=== PATIENT | female | born 1970 | race Caucasian/White ===

== ENCOUNTER 2018-10-10 06:05 | Inpatient (IN) ==
--- NOTE | 2018-10-10 07:11 | PROVIDER DOCUMENTATION ---
HPI-Abdominal Pain/GI Problem - General Chief Complaint: N/V/D Stated Complaint: V / D / PASSED OUT Time Seen by Provider: 10/10/18 07:05 Source: patient Allergies/Adverse Reactions: Patient Allergies Allergy/AdvReac Type Severity Reaction Status Date / Time carbamazepine [From Tegretol] Allergy Unknown Unknown Verified 07/24/18 13:18 divalproex sodium Allergy Unknown Unknown Verified 07/24/18 13:18 [From Depakote] Home Medications: Home Medication List Medication Instructions Recorded Confirmed Last Taken Type Calcium Carb, Citrate/Vit D3 2 tab PO BID 06/21/16 10/10/18 11/03/17 History [Calcium + D3 ER Tablet] Calcitriol 0.5 mcg PO DAILY 11/03/17 10/10/18 11/03/17 History Hydrochlorothiazide 12.5 mg PO EVERY OTHER DAY 11/03/17 10/10/18 11/03/17 History Potassium Gluconate [Potassium] 600 mg PO DAILY 11/03/17 10/10/18 11/03/17 H istory Venlafaxine [Effexor] 75 mg PO BID 11/03/17 10/10/18 11/03/17 History Amlodipine [Norvasc] 5 mg PO DAILY 10/10/18 10/10/18 Unknown History Atorvastatin Calcium [Lipitor] 40 mg PO HS 10/10/18 10/10/18 Unknown History Levothyroxine Sodium [Synthroid] 88 microgm PO DAILY 10/10/18 10/10/18 Unknown History Omeprazole [Prilosec] 20 mg PO DAILY@0700 10/10/18 10/10/18 Unknown History Prednisone 7.5 mg PO DAILY 10/10/18 10/10/18 Unknown History - History of Present Illness-ABD Nature of Presenting Problems: 36hrs n v and diarrhea no fever has chill cough no sob had chills episodes of abdominal pain no abx Abdominal Pain Onset Location: reports: [facility] Pain Radiation: reports: no radiation Quality of Pain: reports: cramping, pressure Severity in ED: reports: mild Onset/Duration: reports: 2 days ago Timing: reports: still present, improving. denies: gone now, constant, getting worse Activities at Onset: reports: none Exposure to sick contacts?: No Modifying Factors: improves with: lying down Associated Symptoms: reports: diarrhea, fever/chills, vomiting Last BM: this morning Dark Stools Present?: reports: none noticed Rectal Bleeding: reports: none # of Diarrhea Episodes: 40 Rectal Pain: reports: none # of Vomiting Episodes: 15 Bruising or Bleeding Gums?: No Similar Symptoms Previously?: No Recently seen or treated by another doctor?: No Review of Systems - Adult - REVIEW OF SYSTEMS - ADULT Constitutional: reports: chills. denies: fever Eyes: reports: no symptoms reported Ears, Nose, Mouth & Throat: reports: no symptoms reported Respiratory: denies: chronic cough, cough, hemoptysis, shortness of breath, wheezing Gastrointestinal: reports: abdominal pain, diarrhea, nausea, poor appetite, vomiting Musculoskeletal: reports: frequent leg cramps, muscle aches, muscle weakness Integumentary: reports: no symptoms reported Neurological: reports: no symptoms reported Psychiatric: reports: no symptoms reported Endocrine: reports: no symptoms reported Hematologic/Lymphatic: reports: no symptoms reported Allergic/Immunologic: reports: no symptoms reported Past History - Adult - PAST MEDICAL HISTORY-ADULT Review of Records: reports: Nursing Assessment Review, Medications Reviewed, Social history reviewed & non-contributory. Major Childhood Illnesses: reports: denies history Cardiovascular: reports: hyperlipidemia Respiratory: reports: denies history Gastrointestinal: reports: GERD Obstetrical/Gynecological: reports: denies history Genitourinary: reports: kidney disease Musculoskeletal: reports: denies history Neurological: reports: Seizures/Epilepsy Psychiatric: reports: anxiety, depression Endocrine/Immune: reports: thyroid disorder Other Conditions: reports: denies history - PRIOR SURGERIES/PROCEDURES Surgical/Procedure History: reports: hysterectomy, other (thyroidectomy) - IMMUNIZATION STATUS Childhood Immunizations: See Nurse Assessment Flu Vaccine: See Nurse Assessment - FAMILY HISTORY Family History: reviewed, not pertinent - SOCIAL HISTORY Smoking: denies Substance Use: none/never Alcohol Use Frequency: occasionally Physical Exam-General - PHYSICAL EXAM-ADULT Initial Vital Signs Reviewed: Yes - CONSTITUTIONAL General Appearance: appears well - EYES Eyes: PERRL/EOMI, pink conjunctivae - HEAD, EARS, NOSE, MOUTH & THROAT HENMT: normocephalic/atraumatic, normal ENT inspection, pharynx normal - NECK Neck: supple - RESPIRATORY Respiratory: lungs clear, normal breath sounds - CARDIOVASCULAR Cardiovascular: normal peripheral pulses, regular rate, rhythm - GASTROINTESTINAL (ABDOMEN) Abdominal Exam: normal bowel sounds, non tender, soft, no organomegaly, no pulsatile mass - LYMPHATIC Lymphatic: no adenopathy - MUSCULOSKELETAL Back Exam: normal inspection, no CVA tenderness Extremity: normal range of motion, non-tender - SKIN Integumentary: normal color, normal turgor - NEUROLOGIC Neurologic: grossly normal - PSYCHIATRIC Psych/Mental Status: oriented x 3 Progress - PLAN OF CARE/RESULTS Progress/Plan/Lab Results: Vital Signs - 8 hr 10/10/18 06:14 Temperature 98.0 F Pulse Rate 79 Respiratory Rate 20 Blood Pressure 110/79 O2 Sat by Pulse Oximetry 99 Result Diagrams: 10/10/18 06:30 10/10/18 06:30 Departure - Departure Date of Disposition Decision: 10/10/18 Time of Disposition Decision: 10:31 DIAGNOSIS: Hypokalemia, Hypocalcemia Disposition: ADMITTED INPATIENT 09 Certified Medical Emergency: Emergent Condition: Stable Referrals and Follow-Ups: Kobe Rios CRNP [Primary Care Provider] - - Critical Care Note This patient required my direct & personal management of CC.: No Attestation - Physician/ NICOLLE Attestation Patient care was provided by Advanced Practice Provider:: No The physician spent face to face time with patient:: Yes Advanced Practice Provider documentation review:: Supervising physician onsite and consulted in the evaluation and care of this patient. The physician did have a face to face encounter with the patient.
[2018-10-10] MEDS ORDERED: NS 1,000 ML IV ONE (07:13)
[2018-10-10] MEDS ORDERED: ZOFRAN ODT PO ONE (07:33)
[2018-10-10 08:04] LABS: BASO# 0.03 X1000 (0.0-0.2); BASO% 0.3 % (0.0-0.8); EOS# 0.05 X1000 (0.0-0.7); EOS% 0.4 % (0.0-10.0); HEMATOCRIT 45.6 % (37.0-47.0); HEMOGLOBIN 15.2 g/dL (12.0-16.0); IMM GRAN# 0.04 X1000 (0.0-0.04); IMM GRAN% 0.3 % (0.0-0.5); LYMPH# 1.75 X1000 (1.2-3.4); LYMPH% 14.7 % (20.5-51.1); MCH 29.9 PG (27-31); MCHC 33.3 g/dL (33-37); MCV 89.6 FL (81-99); MONO# 0.68 X1000 (0.11-0.59); MONO% 5.7 % (1.7-9.3); MPV 10.6 FL (7.4-10.4); NEUT# 9.38 X1000 (1.4-6.5); NEUT% 78.6 % (42.2-75.2); PLT 425 X1000 (130-400); RBC 5.09 XMIL (4.2-5.4); RDW 17.5 % (11.5-14.5); WBC 11.93 X1000 (4.8-10.8)
[2018-10-10 08:26] LABS: ALBUMIN 4.2 g/dL (3.5-5.0); CALCIUM 6.9 mg/dL (8.8-10.2); TOTAL BILIRUBIN 0.4 mg/dL (0.20-1.00); TOTAL PROTEIN 8.2 g/dL (6.3-8.3)
[2018-10-10] MEDS ORDERED: KLOR-CON PO ONE (09:10)
[2018-10-10] MEDS ORDERED: TUMS EXTRA STRENGTH PO ONE (09:11)
[2018-10-10] MEDS ORDERED: TUMS PO ONE (09:30)
--- NOTE | 2018-10-10 09:40 | EKG Report ---
Test Performed on : 10/10/2018 08:56:17 AM Test Reason : emboli Blood Pressure : / mmHG Vent. Rate : 086 BPM Atrial Rate : 086 BPM P-R Int : 150 ms QRS Dur : 070 ms QT Int : 384 ms P-R-T Axes : 027 -20 178 degrees QTc Int : 459 ms Normal sinus rhythm. Low voltage QRS Inferior infarct , age undetermined Cannot rule out Anterior infarct (cited on or before 04-NOV-2017) T wave abnormality, consider lateral ischemia Abnormal ECG When compared with ECG of 04-NOV-2017 06:58, Inferior infarct is now present T wave inversion now evident in Anterolateral leads QT has shortened Unconfirmed Result
[2018-10-10] MEDS ORDERED: ZOFRAN IV PRN (11:56)
[2018-10-10] MEDS: NS 1,000 ML IV SCH ×2 (12:34→21:40)
[2018-10-10] MEDS ORDERED: CALCIUM GLUCONATE 2 GM in NS 100 ML IV ONE (13:00)
[2018-10-10 19:26] LABS: AGAP 11; ALBUMIN 3.5 g/dL (3.5-5.0); ALKALINE PHOSPHATASE 70 U/L (32-104); BUN 10 mg/dL (8-22); CALCIUM 6.8 mg/dL (8.8-10.2); CHLORIDE 108 mmol/L (98-107); COSMO 275; CREATININE 0.7 mg/dL (0.5-0.9); ESTIMATED GFR > 60; GLUCOSE 107 mg/dL (70-104); GOT 16 U/L (10-30); GPT 13 U/L (10-36); POTASSIUM 4.1 mmol/L (3.5-5.1); SODIUM 138 mmol/L (136-145); TCO2 19 mmol/L (25-35); TOTAL PROTEIN 6.2 g/dL (6.3-8.3)
[2018-10-10] MEDS ORDERED: CALTRATE 600 PO ONE ×2 (19:30→19:45)
[2018-10-10] MEDS ORDERED: EFFEXOR PO SCH (21:00)
[2018-10-10] MEDS: CALTRATE 600 + D PO SCH (21:38)
[2018-10-10] MEDS: LIPITOR PO SCH (21:38)
--- NOTE | 2018-10-11 02:40 | HISTORY AND PHYSICAL ---
CHIEF COMPLAINT: Nausea, vomiting. HISTORY OF PRESENT ILLNESS: The patient is a 36-year-old female who notes that she has been having nausea, vomiting, cough, chills for the past several days. She has had diarrhea. States this usually happens when she has low calcium. ALLERGIES: Tegretol, Depakote. MEDICATIONS: Calcium carbonate, calcitriol, hydrochlorothiazide, potassium gluconate, Effexor 75 twice a day, Norvasc, Lipitor 40, Synthroid 88, omeprazole and prednisone. PAST MEDICAL HISTORY: Patient has a history of hyperlipidemia, chronic reflux, kidney disease, epilepsy, depression, thyroid disorder. She has had a hysterectomy and thyroidectomy. FAMILY HISTORY: Noncontributory. REVIEW OF SYSTEMS: As noted above. Positive chills but no real fevers. Positive cough and congestion, diarrhea, vomiting. Denies any headaches, blurred vision, change in vision. Denies any focalized numbness, tingling, weakness, although does state she has generalized weakness. SOCIAL HISTORY: She lives at home. Does not smoke or drink. Does not use illicit substances. PHYSICAL EXAMINATION: VITAL SIGNS: Reviewed. Temperature 98 degrees, pulse 79, respiratory 20, BP 110/79. GENERAL: Patient is awake, alert, currently in no respiratory distress. HEENT: Normocephalic. NECK: Supple. CARDIOVASCULAR: Regular rate. No murmurs. CHEST: Clear and nonlabored. ABDOMEN: Soft. EXTREMITIES: Moves all extremities. NEUROLOGIC: No focal changes. LABS: CBC normal. CMP normal with the exception of hyperglycemia at 153, potassium 3.0 and calcium at 6.0. ASSESSMENT: 1. Hypokalemia. 2. Hypocalcemia. 3. Hyperglycemia in a patient with no previous history. 4. Hypothyroidism. 5. Hypertension. 6. Others. PLAN: We will admit patient to the hospital, replace her calcium, restart her home medications and follow. cc: Celio López MD
[2018-10-11] MEDS: SYNTHROID PO SCH (06:17)
[2018-10-11] MEDS: PRILOSEC PO SCH (06:17)
[2018-10-11 06:51] LABS: BASO# 0.02 X1000 (0.0-0.2); BASO% 0.2 % (0.0-0.8); EOS# 0.46 X1000 (0.0-0.7); EOS% 5.1 % (0.0-10.0); HEMATOCRIT 36.9 % (37.0-47.0); HEMOGLOBIN 11.8 g/dL (12.0-16.0); IMM GRAN# 0.02 X1000 (0.0-0.04); IMM GRAN% 0.2 % (0.0-0.5); LYMPH# 2.33 X1000 (1.2-3.4); LYMPH% 25.9 % (20.5-51.1); MCH 29.4 PG (27-31); MONO# 0.71 X1000 (0.11-0.59); MONO% 7.9 % (1.7-9.3); NEUT# 5.45 X1000 (1.4-6.5); NEUT% 60.7 % (42.2-75.2); PLT 286 X1000 (130-400); RBC 4.01 XMIL (4.2-5.4); RDW 17.4 % (11.5-14.5); WBC 8.99 X1000 (4.8-10.8)
[2018-10-11 07:21] LABS: ESTIMATED GFR > 60
[2018-10-11 07:31] LABS: AGAP 11; ALBUMIN 3.2 g/dL (3.5-5.0); ALKALINE PHOSPHATASE 69 U/L (32-104); BUN 8 mg/dL (8-22); CHLORIDE 112 mmol/L (98-107); COSMO 287; CREATININE 0.7 mg/dL (0.5-0.9); GLUCOSE 97 mg/dL (70-104); GOT 16 U/L (10-30); GPT 12 U/L (10-36); POTASSIUM 3.8 mmol/L (3.5-5.1); SODIUM 145 mmol/L (136-145); TCO2 22 mmol/L (25-35); TOTAL PROTEIN 6.2 g/dL (6.3-8.3)
[2018-10-11 07:35] LABS: CALCIUM 6.5 mg/dL (8.8-10.2)
[2018-10-11] MEDS: NS 1,000 ML IV SCH ×2 (07:50→18:23)
[2018-10-11] MEDS ORDERED: EFFEXOR PO SCH (09:00)
[2018-10-11] MEDS: PREDNISONE PO SCH (09:21)
[2018-10-11] MEDS: ROCALTROL PO SCH (09:22)
[2018-10-11] MEDS: CALTRATE 600 + D PO SCH ×2 (09:22→20:51)
[2018-10-11] MEDS: PATIENT'S OWN MED PO SCH (09:25)
[2018-10-11] MEDS ORDERED: CALCIUM GLUCONATE 1 GM in NS 50 ML IV ONE ×2 (09:36→11:00)
[2018-10-11] MEDS: EFFEXOR PO SCH ×2 (10:02→20:51)
[2018-10-11] MEDS: CALTRATE 600 PO SCH ×2 (12:26→16:36)
--- NOTE | 2018-10-11 17:48 | PROGRESS NOTE ---
DATE: 10/11/2018 SUBJECTIVE: Patient notes she is starting to feel a little bit better she is actually wanting to eat breakfast. Denies any fevers or chills. Denies cough, congestion. PHYSICAL: Temperature 98.5, pulse 63, respiratory [*] 78/50 to 89/51.General: Patient is awake, she is in no current distress, she is alert, oriented x3. HEENT: Normocephalic. Neck: Supple. CARDIOVASCULAR: Regular rate. Chest: Clear. Abdomen: Soft, nondistended. Extremities: Moves all extremities. ASSESSMENT: 1. Hypokalemia . 2. Hypocalcemia. 3. Hyperglycemia. 4. Hypothyroidism. 5. Hypertension. PLAN: Will continue patient in the hospital, continue to adjust calcium, follow her labs. Blood pressure is mildly low although she is tolerating this very well. Further orders as needed, hopefully home over the next few days. cc: Celio López MD
[2018-10-11] MEDS: LIPITOR PO SCH (20:51)
[2018-10-12] MEDS: NS 1,000 ML IV SCH (04:27)
[2018-10-12 05:22] VITALS: BP 112/67
[2018-10-12] MEDS: PRILOSEC PO SCH (06:13)
[2018-10-12] MEDS: SYNTHROID PO SCH (06:13)
[2018-10-12] MEDS: CALTRATE 600 + D PO SCH (10:17)
[2018-10-12] MEDS: PREDNISONE PO SCH (10:17)
[2018-10-12] MEDS: CALTRATE 600 PO SCH ×2 (10:17→13:31)
[2018-10-12] MEDS: EFFEXOR PO SCH (10:18)
[2018-10-12] MEDS: ROCALTROL PO SCH (10:18)
[2018-10-12] MEDS: PATIENT'S OWN MED PO SCH (10:19)
--- NOTE | 2018-10-12 15:49 | Extremity Venous Study ---
Venous U/S Bilateral Legs - 10/12/2018 INDICATION: RLE pain, elevated ddimer TECHNIQUE: COMPARISON: None FINDINGS: At the right knee, there is a superficial varicose vein that is completely thrombosed. The deep veins of the lower extremity are fully compressible with normal color and pulse wave Doppler signal. IMPRESSION: Thrombosed varicose vein at the right knee. Electronically signed by Beni Pacheco 10/12/2018 3:46 PM
--- NOTE | 2018-10-12 16:37 | DISCHARGE SUMMARY ---
ADMISSION DATE: 10/10/2018 DISCHARGE DATE: 10/12/2018 DIAGNOSES: 1. Hypokalemia resolved. 2. Hypocalcemia improved. 3. Hyperglycemia resolved. 4. Hypothyroidism with a TSH of 6.20. 5. Hypertension. DIAGNOSTICS: Bilateral lower extremity Doppler revealed no evidence of DVT . HOSPITAL COURSE: Ms. Thao presented to the emergency room complaining of nausea, vomiting, cough and chills. She states that this usually happens when [*] she was found to be hypocalcemic with a calcium of 6.9 for which she was supplemented throughout the hospitalization. Symptoms have resolved. Her TSH was 6.20. We did continue her levothyroxine. We did discuss compliance with medication with the patient. Just prior to discharge she had an area above her TERRY hose right beside her knee cap that was tender to palpation. Lower extremity Doppler bilateral was performed which revealed no evidence of DVT. DISCHARGE VITAL SIGNS: Blood pressure is 112/67, heart rate of 68, respirations 18, temperature 97 degrees oral with room air saturations 100%. DISCHARGE MEDICATIONS: 1. Levothyroxine 88 mcg p.o. daily. 2. Prilosec 20 mg p.o. daily. 3. Calcitriol 0.5 p.o. daily. 4. Caltrate D 2 tablets b.i.d. 5. Hydrochlorothiazide 12.5 p.o. daily. 6. Atorvastatin 40 mg p.o. at bedtime. 7. Effexor 75 mg p.o. b.i.d. 8. Prednisone 7.5 p.o. daily FOLLOWUP: She is to follow up with her primary care provider Kobe Rios in 1 to 2 weeks. She needs to call Saturday to schedule an appointment. She has been instructed to call to be seen sooner or return to the emergency room for any syncope, dizziness, chest pain, palpitations, any shortness of breath, cough, fever, chills, any nausea, vomiting, diarrhea, constipation, hematuria, dysuria, frequency, urgency or for any questions or concerns that she may have. She is being discharged home in stable condition with family members. TIME SPENT: Greater than 30 minutes. Dictated by NORBERTO Wilson for Celio López MD cc: Kobe López MD
--- NOTE | 2018-10-12 18:47 | DISCHARGE SUMMARY ---
ADMISSION DATE: 10/10/2018 DISCHARGE DATE: 10/12/2018 SUMMARY: Patient seen and examined by myself. Full note dictated and discussed with nurse practitioner. Patient presented to the hospital with hypokalemia and hypocalcemia due to her surgically induced hypoparathyroidism. Her potassium and calcium were replaced. Her blood pressures improved. On discharge, she is awake, alert. She is in no distress and overall is feeling better. The patient will be discharged home. She will continue her home medications, and will follow up outpatient as needed. cc: Celio López MD
== END 2018-10-12 16:47 | disposition home or self-care (01) | DRG 645 ==
LOC: P.MEDSURG 06:05 → P.ED 06:05 → OBSVTOIN 10:45
PROVIDERS: ATTEND Family Medicine
CPT/HCPCS: 80053; 83735; 84439; 84443; 85025; 85379; 93005; 93970; 96360; 99285; A9270; J0610; J7030; J7506; J7512

== ENCOUNTER 2019-01-31 13:13 | Inpatient (IN) ==
[2019-01-31 13:48] LABS: HEMATOCRIT 39.4 % (37.0-47.0); MCH 30.2 PG (27-31); MCV 91.4 FL (81-99); RBC 4.31 XMIL (4.2-5.4); RDW 16.4 % (11.5-14.5); WBC 14.21 X1000 (4.8-10.8)
[2019-01-31 13:49] LABS: BASO# 0.12 X1000 (0.0-0.2); BASO% 0.8 % (0.0-0.8); EOS# 0.14 X1000 (0.0-0.7); IMM GRAN# 0.09 X1000 (0.0-0.04); IMM GRAN% 0.6 % (0.0-0.5); LYMPH# 1.69 X1000 (1.2-3.4); LYMPH% 11.9 % (20.5-51.1); MONO# 0.62 X1000 (0.11-0.59); MONO% 4.4 % (1.7-9.3); MPV 10.1 FL (7.4-10.4); NEUT# 11.55 X1000 (1.4-6.5); NEUT% 81.3 % (42.2-75.2); PLT 388 X1000 (130-400)
[2019-01-31 14:08] LABS: ESTIMATED GFR > 60
[2019-01-31 14:30] LABS: UR AMPHETAMINES QUAL NONE DETECTED (NONE DETECT); UR BARBITUATES QUAL NONE DETECTED (NONE DETECT); UR BENZODIAZEPIN QUAL NONE DETECTED (NONE DETECT); UR COCAINE QUAL NONE DETECTED (NONE DETECT); UR METHADONE QUAL NONE DETECTED (NONE DETECT); UR METHAMPHETAMINE QUAL NONE DETECTED (NONE DETECT); UR OPIATES QUAL NONE DETECTED (NONE DETECT); UR OXYCODONE QUAL NONE DETECTED (NONE DETECT); UR PCP QUAL NONE DETECTED (NONE DETECT)
[2019-01-31 14:31] LABS: UR CANNABINOIDS QUAL NONE DETECTED (NONE DETECT); UR PROPOXYPHENE QUAL NONE DETECTED (NONE DETECT); UR TCA QUAL NONE DETECTED (NONE DETECT)
[2019-01-31 14:32] LABS: FREE T4 0.5 ng/dL (0.93-1.70); TSH 11.08 uIUmL (0.27-4.20)
[2019-01-31 14:34] LABS: AGAP 15; ALBUMIN 4.4 g/dL (3.5-5.0); ALKALINE PHOSPHATASE 112 U/L (32-104); BUN 14 mg/dL (8-22); CALCIUM 5.7 mg/dL (8.8-10.2); CHLORIDE 97 mmol/L (98-107); COSMO 281; CREATININE 0.8 mg/dL (0.5-0.9); GLUCOSE 116 mg/dL (70-104); GOT 26 U/L (10-30); GPT 15 U/L (10-36); MAGNESIUM 1.7 mg/dL (1.5-2.7); POTASSIUM 4.6 mmol/L (3.5-5.1); SODIUM 140 mmol/L (136-145); TCO2 28 mmol/L (25-35)
[2019-01-31 14:41] LABS: BILIRUBIN URINE NEGATIVE (NEGATIVE); BLOOD URINE NEGATIVE (NEGATIVE); CLARITY CLEAR (CLEAR); COLOR YELLOW; GLUCOSE URINE NEGATIVE (NEGATIVE); KETONE URINE NEGATIVE (NEGATIVE); LEUKOCYTES URINE 2+ (NEGATIVE); NITRITE URINE NEGATIVE (NEGATIVE); PROTEIN URINE TRACE mg/dL (NEGATIVE); SP GRAVITY URINE 1.005; UROBILINOGEN URINE NORMAL
[2019-01-31 14:45] LABS: URINE BACTERIA 1+ /HFP; URINE EPITHELIAL CELLS <10 /HPF (<10); URINE RBC <10 /HPF (<10); URINE SOURCE CLEAN CATCH
[2019-01-31] MEDS ORDERED: CALCIUM GLUCONATE 1 GM in NS 100 ML IV ONE ×2 (16:04→16:30)
[2019-01-31] MEDS ORDERED: NS 1,000 ML IV ONE (17:59)
[2019-01-31] MEDS: CALCIUM GLUCONATE 1 GM in NS 50 ML IV SCH ×2 (20:08→21:12)
--- NOTE | 2019-01-31 20:24 | HISTORY AND PHYSICAL ---
CHIEF COMPLAINT: Muscle cramps in hands and face. HISTORY OF PRESENT ILLNESS: Patient is a 48-year-old female who presented to the emergency department noting that she was having tingling in her hands and face, as well as tetany. She has a known history of low calcium and potassium, as well as Graves disease. She states this happened after she had thyroid surgery. She does have a history of seizures, although last seizure was in 2014. Notes that her face was drawing, felt numb, hands were cramping. Lower extremities also were withdrawing up and felt numb and cramping. Denies any fevers or chills. Denies any dysuria, urinary frequency, urgency. She states symptoms started yesterday and they continue to worsen. She did try to take extra calcium, but this did not help. PAST MEDICAL HISTORY: Hypothyroidism, hypoparathyroidism, chronic hypocalcemia, chronic anxiety, depression, reflux, diabetes type 2, Berto's, Raynaud's, chronic migraines, history of seizures with her last one being in 2014, chronic arthritis. PAST SURGICAL HISTORY: She had a thyroidectomy in 1989, with subsequent damage to her parathyroid. She had a hysterectomy in 2005. FAMILY HISTORY: Father has hypertension. SOCIAL HISTORY: Patient has a history of smoking, but stopped over 20 years ago. Does drink 1 or 2 glasses of wine a week. Denies any illicit substances. MEDICATIONS: Synthroid 88, Mobic 7.5, Lipitor 40, calcitriol, hydrochlorothiazide 12.5, Effexor 75, potassium, calcium plus D two tablets twice daily. ALLERGIES: Depakote and Tegretol. REVIEW OF SYSTEMS: As noted above. She denies any fevers, chills, cough, congestion. Denies any headaches, blurred vision, change in vision. Denies any focalized numbness or weakness in her extremities, although does have generalized weakness as well as muscle cramps. Denies any dysuria, urinary frequency, urgency. Denies constipation, melena, hematochezia. Does have chronic swelling in her lower extremities. PHYSICAL EXAMINATION: VITAL SIGNS: Reviewed. Temperature 98 degrees, pulse 78, respiratory rate 18, BP 124/90, saturating 98% on room air. GENERAL: Patient is awake, alert. She is in no current respiratory distress. Pleasant to talk with. Notes that her muscle cramps appear to be a little bit better. HEENT: Normocephalic. NECK: Supple. CARDIOVASCULAR: Regular rate. CHEST: Clear. ABDOMEN: Soft, nondistended. EXTREMITIES: Moves all extremities. NEUROLOGIC: No changes. LABORATORY: WBCs 14. Glucose 116, calcium 5.7, albumin 4.4. TSH 11.08. Urine with 2+ WBCs, 10 to 20 white blood cells. ASSESSMENT/PLAN: 1. Hypocalcemia in a patient with known hypoparathyroidism. She does take calcium replacement at home. She has already been given 3 g of calcium gluconate in the ER. We will recheck her calcium and continue to follow. 2. Myrtle's. She is not hypotensive. We will continue IV fluids. 3. Hypothyroidism. TSH actually is elevated. She states she has been taking her Synthroid. We will recheck her thyroid in the morning, and if it is elevated, we will adjust her Synthroid doses. 4. Chronic reflux. 5. Leukocytosis with a questionable urinary tract infection. We will place her on antibiotics and will follow. We will continue her home medications once doses are verified. cc: Celio López MD
[2019-01-31] MEDS ORDERED: EFFEXOR PO SCH (21:00)
[2019-01-31] MEDS: LIPITOR PO SCH (22:01)
[2019-01-31] MEDS: PREDNISONE PO SCH (22:02)
[2019-01-31] MEDS: ROCEPHIN 1 GM in NS 50 ML IV SCH (22:03)
[2019-02-01] MEDS: PRILOSEC PO SCH (06:20)
[2019-02-01] MEDS: SYNTHROID PO SCH (06:20)
[2019-02-01 07:02] LABS: HEMATOCRIT 37.8 % (37.0-47.0); HEMOGLOBIN 12.2 g/dL (12.0-16.0); MCH 29.5 PG (27-31); MCHC 32.3 g/dL (33-37); MCV 91.3 FL (81-99); MPV 10.6 FL (7.4-10.4); RBC 4.14 XMIL (4.2-5.4); RDW 16.3 % (11.5-14.5); WBC 11.94 X1000 (4.8-10.8)
[2019-02-01 07:30] LABS: ESTIMATED GFR > 60
[2019-02-01 07:32] LABS: AGAP 15; ALKALINE PHOSPHATASE 95 U/L (32-104); BUN 11 mg/dL (8-22); CHLORIDE 98 mmol/L (98-107); COSMO 277; CREATININE 0.6 mg/dL (0.5-0.9); GLUCOSE 104 mg/dL (70-104); GOT 21 U/L (10-30); GPT 12 U/L (10-36); MAGNESIUM 1.9 mg/dL (1.5-2.7); SODIUM 139 mmol/L (136-145); TCO2 26 mmol/L (25-35); TOTAL PROTEIN 7.2 g/dL (6.3-8.3)
[2019-02-01 07:34] LABS: CALCIUM 6.2 mg/dL (8.8-10.2)
[2019-02-01 07:50] LABS: TSH 7.5 uIUmL (0.27-4.20)
[2019-02-01] MEDS ORDERED: CALCIUM GLUCONATE 2 GM in NS 100 ML IV ONE (08:30)
[2019-02-01] MEDS: HYDROCHLOROTHIAZIDE PO SCH (08:32)
[2019-02-01] MEDS: ROCALTROL PO SCH (08:33)
[2019-02-01] MEDS: PREDNISONE PO SCH ×2 (08:33→22:40)
[2019-02-01] MEDS: CALTRATE 600 + D PO SCH ×3 (08:33→17:30)
[2019-02-01] MEDS ORDERED: PREDNISONE PO SCH (09:00)
--- NOTE | 2019-02-01 10:22 | PROGRESS NOTE ---
DATE: 02/01/2019 SUBJECTIVE: Patient notes that overall she is feeling better. She is having less cramping and tingling. PHYSICAL EXAMINATION: Vital Signs: Reviewed and stable. General: Patient is awake, alert. She is in no distress. HEENT: Normocephalic, atraumatic. FITO. Neck: Supple. No JVD. Cardiovascular: Regular rate. No murmurs. Chest: Clear, nonlabored. Abdomen: Soft. Extremities: Moves all extremities. Neurologic: No focal changes. Skin: Warm dry no rashes. ASSESSMENT: 1. Hypocalcemia. Calcium is increased to 6.5. 2. Hypokalemia. 3. [place] disease. PLAN: We will continue patient in the hospital. We will continue symptomatic treatment with her calcium. Further orders as needed. Hopefully, she can discharge home over the next day or 2. cc: Celio López MD
[2019-02-01] MEDS: EFFEXOR PO SCH ×2 (10:27→22:39)
--- NOTE | 2019-02-01 14:27 | PROVIDER DOCUMENTATION ---
This chart was entered by Daryn Mendiola Scribe, acting as scribe for Man Conde MD. HPI-General Adult - General Chief Complaint: General Adult Stated Complaint: FINGERS DRAWING UP/FACE/LEGS NUMB Time Seen by Provider: 01/31/19 15:17 Source: patient Allergies/Adverse Reactions: Patient Allergies Allergy/AdvReac Type Severity Reaction Status Date / Time carbamazepine [From Tegretol] Allergy Unknown Unknown Verified 01/31/19 15:40 divalproex sodium Allergy Unknown Unknown Verified 01/31/19 15:40 [From Depakote] Home Medications: Home Medication List Medication Instructions Recorded Confirmed Last Taken Type Calcium Carb, Citrate/Vit D3 2 tab PO TID 06/21/16 01/31/19 01/31/19 History [Calcium + D3 ER Tablet] Calcitriol 1 mcg PO DAILY 11/03/17 01/31/19 01/31/19 History Hydrochlorothiazide 12.5 mg PO DAILY 11/03/17 01/31/19 01/31/19 History Venlafaxine [Effexor] 75 mg PO BID 11/03/17 01/31/19 01/31/19 History Atorvastatin Calcium [Lipitor] 40 mg PO HS 10/10/18 01/31/19 1 Day Ago History ~01/30/19 Levothyroxine Sodium [Synthroid] 88 microgm PO DAILY 10/10/18 01/31/19 01/31/19 History Omeprazole [Prilosec] 20 mg PO DAILY@0700 10/10/18 01/31/19 01/31/19 History Prednisone 10 mg PO DAILY 10/10/18 01/31/19 01/31/19 History Fluticasone 50 Mcg Nasal [place] 1 spray INTRANASAL DAILY 01/31/19 01/31/19 01/31/19 History [Flonase] Potassium Gluconate 99 mg PO BID 01/31/19 01/31/19 01/31/19 History Prednisone 5 mg PO QPM 01/31/19 01/31/19 1 Day Ago History ~01/30/19 - History of Present Illness -Gen Adult Nature of Presenting Problems: pt presents to the ed c/o "hands and face drawing up and numb" pt has a hx of low calcium potassium and Graves Disease. pt is a borderline Diabetic. Pt has a hx of seizures, last seizure was in 2014. Location of Pain/Injury: reports: face (pt states "face is drawing up/ numb"), hand(s) (pt states "hands is drawing up/ numb "), lower extremity (pt states "legs is drawing up/numb ") Pain Radiation: reports: no radiation Quality of Pain: reports: none Severity: reports: mild Onset/Duration: reports: unsure Timing: reports: still present Context/Activities at Onset: reports: light activity Modifying Factors: improves with: nothing Associated Symptoms: denies: back/neck pain, chest pain, diarrhea, headaches, nausea, seizure, vomiting Similar Symptoms Previously?: No Recently seen or treated by another doctor?: No Review of Systems - Adult - REVIEW OF SYSTEMS - ADULT Constitutional: denies: chills, fever Eyes: reports: no symptoms reported Ears, Nose, Mouth & Throat: reports: no symptoms reported Cardiovascular: denies: chest pain, palpitations, syncope Respiratory: denies: cough, shortness of breath, wheezing Gastrointestinal: denies: abdominal pain, diarrhea, nausea, vomiting Genitourinary: reports: no symptoms reported Musculoskeletal: reports: no symptoms reported Integumentary: reports: no symptoms reported Neurological: reports: see HPI, numbness (legs face hands). denies: dizziness/vertigo, headache/migraines Psychiatric: reports: no symptoms reported Endocrine: reports: no symptoms reported Hematologic/Lymphatic: reports: no symptoms reported Allergic/Immunologic: reports: no symptoms reported All Other Systems: Reviewed and Negative Past History - Adult - PAST MEDICAL HISTORY-ADULT Review of Records: reports: Old Records Reviewed, Nursing Assessment Review, Medications Reviewed, Social history reviewed & non-contributory. Major Childhood Illnesses: reports: denies history Cardiovascular: reports: hyperlipidemia Respiratory: reports: denies history Gastrointestinal: reports: GERD Obstetrical/Gynecological: reports: denies history Genitourinary: reports: kidney disease Musculoskeletal: reports: denies history Neurological: reports: Seizures/Epilepsy (2015 last seizure) Psychiatric: reports: anxiety, depression Endocrine/Immune: reports: thyroid disorder Other Conditions: reports: denies history - PRIOR SURGERIES/PROCEDURES Surgical/Procedure History: reports: hysterectomy, other (thyroidectomy) - IMMUNIZATION STATUS Childhood Immunizations: See Nurse Assessment Flu Vaccine: See Nurse Assessment - FAMILY HISTORY Family History: reviewed, not pertinent - SOCIAL HISTORY Smoking: quit greater than 1 year Alcohol Use Frequency: occasionally Living Situation: alone Physical Exam-General - PHYSICAL EXAM-ADULT Initial Vital Signs Reviewed: Yes - CONSTITUTIONAL General Appearance: appears well, alert, no apparent distress - EYES Eyes: PERRL/EOMI, pink conjunctivae - HEAD, EARS, NOSE, MOUTH & THROAT HENMT: moist mucous membranes - RESPIRATORY Respiratory: lungs clear, normal breath sounds - CARDIOVASCULAR Cardiovascular: normal peripheral pulses, regular rate, rhythm - GASTROINTESTINAL (ABDOMEN) Abdominal Exam: normal bowel sounds, non tender, soft - MUSCULOSKELETAL Back Exam: normal inspection Extremity: normal range of motion, non-tender, normal gait - SKIN Integumentary: normal turgor - NEUROLOGIC Neurologic: grossly normal, other (positive [place] sign) - PSYCHIATRIC Psych/Mental Status: normal mood/affect, normal thought content, normal thought process, oriented x 3 Progress - PLAN OF CARE/RESULTS Progress/Plan/Lab Results: Vital Signs - 8 hr 01/31/19 13:17 Temperature 98 F Pulse Rate 98 H Respiratory Rate 18 Blood Pressure 153/96 O2 Sat by Pulse Oximetry 97 Laboratory Results - last 24 hr 01/31/19 01/31/19 01/31/19 13:40 13:40 13:41 WBC 14.21 H RBC 4.31 Hgb 13.0 Hct 39.4 MCV 91.4 MCH 30.2 MCHC 33.0 RDW Std Deviation 16.4 H Plt Count 388 MPV 10.1 Immature Gran % (Auto) 0.6 H Neut % (Auto) 81.3 H Lymph % (Auto) 11.9 L [place] % (Auto) 4.4 Eos % (Auto) 1.0 Baso % (Auto) 0.8 Immature Gran # (Auto) 0.09 H Neut # (Auto) 11.55 H Lymph # (Auto) 1.69 Cache # (Auto) 0.62 H Eos # (Auto) 0.14 Baso # (Auto) 0.12 Sodium Potassium Chloride Carbon Dioxide Anion Gap BUN Creatinine Estimated GFR/1.73 m2 BUN/Creatinine Ratio Glucose Calculated Osmolality Calcium Magnesium Total Bilirubin AST ALT Alkaline Phosphatase Total Protein Albumin Globulin Albumin/Globulin Ratio TSH Free T4 Urine Source CLEAN CATCH Urine Color YELLOW Urine Clarity CLEAR Urine pH 7.0 Ur Specific [place] 1.005 Urine Protein TRACE A Urine Ketones NEGATIVE Urine Blood NEGATIVE Urine Nitrite NEGATIVE Urine Bilirubin NEGATIVE Urine Urobilinogen NORMAL Urine Microscopic RBC <10 Urine WBC 2+ A Urine Microscopic WBC 10-20 A Ur Epithelial Cells <10 Urine Bacteria 1+ Urine Glucose NEGATIVE Urine Opiates Screen NONE DETECTED Ur Oxycodone Screen NONE DETECTED Urine Methadone Screen NONE DETECTED U Propoxyphene Qual NONE DETECTED Ur Barbituates Screen NONE DETECTED Ur Tricyclics Screen NONE DETECTED Ur Phencyclidine Scrn NONE DETECTED Ur Amphetamines Screen NONE DETECTED U Methamphetamines Scrn NONE DETECTED U Benzodiazepines Scrn NONE DETECTED Urine Cocaine Screen NONE DETECTED U Cannabinoids Screen NONE DETECTED 01/31/19 01/31/19 13:41 13:41 WBC RBC Hgb Hct MCV MCH MCHC RDW Std Deviation Plt Count MPV Immature Gran % (Auto) Neut % (Auto) Lymph % (Auto) [place] % (Auto) Eos % (Auto) Baso % (Auto) Immature Gran # (Auto) Neut # (Auto) Lymph # (Auto) [place] # (Auto) Eos # (Auto) Baso # (Auto) Sodium 140 Potassium 4.6 Chloride 97 L Carbon Dioxide 28 Anion Gap 15 BUN 14 Creatinine 0.8 Estimated GFR/1.73 m2 > 60 BUN/Creatinine Ratio 18 Glucose 116 H Calculated Osmolality 281 Calcium 5.7 L* Magnesium 1.7 Total Bilirubin 0.20 AST 26 ALT 15 Alkaline Phosphatase 112 H Total Protein 8.0 Albumin 4.4 Globulin 4.0 Albumin/Globulin Ratio 1.0 TSH 11.08 H Free T4 0.50 L Urine Source Urine Color Urine Clarity Urine pH Ur Specific [place] Urine Protein Urine Ketones Urine Blood Urine Nitrite Urine Bilirubin Urine Urobilinogen Urine Microscopic RBC Urine WBC Urine Microscopic WBC Ur Epithelial Cells Urine Bacteria Urine Glucose Urine Opiates Screen Ur Oxycodone Screen Urine Methadone Screen U Propoxyphene Qual Ur Barbituates Screen Ur Tricyclics Screen Ur Phencyclidine Scrn Ur Amphetamines Screen U Methamphetamines Scrn U Benzodiazepines Scrn Urine Cocaine Screen U Cannabinoids Screen Orders Category Date Time Status CBC WITH DIFF [HEME] Stat Lab 01/31/19 13:41 Completed COMPREHENSIVE METABOLIC PANEL [CHEM] Stat Lab 01/31/19 13:41 Completed MAGNESIUM [CHEM] Stat Lab 01/31/19 13:41 Completed TSH Stat Lab 01/31/19 13:[address] W/POSS RFLX CULT [URINALYSIS] Stat Lab 01/31/19 13:40 Completed URINE CULTURE [RM] Routine Lab 01/31/19 14:45 [address]UG SCREEN [address] Stat Lab 01/31/19 13:40 Completed t4 [FREE T4] Stat Lab 01/31/19 13:41 Completed Transfer/Admit Order [TRANSFER] Routine Transfer 01/31/19 15:50 Ordered Result Diagrams: 02/01/19 05:33 02/01/19 05:33 - CONSULTS/PCP/HOSPITALIST Notification #1 *Consult/PCP/Hospitalist*: Dr. López Consult Disposition: Admit Departure - Departure Date of Disposition Decision: 01/31/19 Time of Disposition Decision: 17:39 DIAGNOSIS: Hypocalcemia, Hypokalemia, Hyponatremia Disposition: ADMITTED INPATIENT 09 Certified Medical Emergency: Emergent Condition: Stable - Critical Care Note This patient required my direct & personal management of CC.: No Attestation - Physician/ NICOLLE Attestation Patient care was provided by Advanced Practice Provider:: No The physician spent face to face time with patient:: Yes Advanced Practice Provider documentation review:: Supervising physician onsite and consulted in the evaluation and care of this patient. The physician did have a face to face encounter with the patient. This chart was documented by the indicated scribe, (Daryn Mendiola, [employer]) and accurately reflects the services I performed and decisions made by me, Man Conde MD, as attested by the provider's signature.
[2019-02-01] MEDS ORDERED: CALCIUM GLUCONATE 1 GM in NS 50 ML IV ONE (15:40)
[2019-02-01] MEDS: ROCEPHIN 1 GM in NS 50 ML IV SCH (18:19)
[2019-02-01] MEDS ORDERED: PATIENT'S OWN MED PO SCH (21:00)
[2019-02-01] MEDS: LIPITOR PO SCH (22:39)
[2019-02-02 05:50] LABS: HEMOGLOBIN 12.6 g/dL (12.0-16.0); MCH 29.5 PG (27-31); MCHC 32.3 g/dL (33-37); MCV 91.3 FL (81-99); MPV 10.4 FL (7.4-10.4); RBC 4.27 XMIL (4.2-5.4); RDW 16.4 % (11.5-14.5); WBC 11.93 X1000 (4.8-10.8)
[2019-02-02 06:13] LABS: AGAP 17; ALBUMIN 4.2 g/dL (3.5-5.0); ALKALINE PHOSPHATASE 100 U/L (32-104); BUN 18 mg/dL (8-22); CALCIUM 7.8 mg/dL (8.8-10.2); CHLORIDE 97 mmol/L (98-107); COSMO 285; CREATININE 0.7 mg/dL (0.5-0.9); ESTIMATED GFR > 60; GLUCOSE 100 mg/dL (70-104); GOT 25 U/L (10-30); GPT 15 U/L (10-36); POTASSIUM 3.5 mmol/L (3.5-5.1); SODIUM 142 mmol/L (136-145); TCO2 29 mmol/L (25-35); TOTAL PROTEIN 7.4 g/dL (6.3-8.3)
[2019-02-02] MEDS: SYNTHROID PO SCH (06:16)
[2019-02-02] MEDS: PRILOSEC PO SCH (06:16)
[2019-02-02] MEDS: PATIENT'S OWN MED PO SCH ×2 (06:17→11:58)
[2019-02-02 07:18] VITALS: BP 136/86
[2019-02-02] MEDS: EFFEXOR PO SCH (09:22)
[2019-02-02] MEDS: PREDNISONE PO SCH (09:22)
[2019-02-02] MEDS: ROCALTROL PO SCH (09:22)
[2019-02-02] MEDS: HYDROCHLOROTHIAZIDE PO SCH (09:23)
[2019-02-02] MEDS: CALTRATE 600 + D PO SCH (09:23)
--- NOTE | 2019-02-02 16:56 | DISCHARGE SUMMARY ---
ADMISSION DATE: 01/31/2019 DISCHARGE DATE: 02/02/2019 PRIMARY CARE PHYSICIAN: Dr. Lakshmi Pulliam. ADMISSION DIAGNOSES: 1. Hypocalcemia in a patient with known hypoparathyroidism. 2. Flagler's. 3. Hypothyroidism. 4. Chronic reflux. 5. Leukocytosis with a questionable urinary tract infection. DISCHARGE DIAGNOSES: 1. Hypocalcemia in a patient with known hypoparathyroidism, resolved. 2. Flagler's. 3. Hypothyroidism. 4. Chronic reflux. 5. Leukocytosis with questionable urinary tract infection. Leukocytosis improved. Urine culture with no growth. SUMMARY OF FINDINGS: This is a 48-year-old female who presented to the emergency room with complaints of tingling in her hands and face, as well as tenting. Had a known history of low calcium and potassium, as well as Graves disease. States this happened after she had thyroid surgery. Has a history of seizures but last known seizure was in 2014. Notes that her face had been drawing, felt numb, and hands were cramping. Lower extremities also were drawing up and felt numb and cramping. Her symptoms continued to worsen and she tried to take extra calcium, but it did not help. When she arrived to the emergency room she had a calcium of 6.2, was given 3 g of calcium gluconate in the ER. We rechecked her calcium this morning and it was up to 7.8. Her TSH went from 11.08 down to 7.50 with a free T4 of 0.50. Cortisol level was 0.7 and it was felt that she could safely be discharged home per attending. DISCHARGE MEDICATIONS: Lipitor 40 mg p.o. at bedtime, calcitriol 1 mcg p.o. daily, calcium with vitamin D3 2 tablets p.o. t.i.d., Flonase 1 spray nasally daily, hydrochlorothiazide 12.5 mg p.o. daily, Synthroid 88 mcg p.o. daily, omeprazole 20 mg p.o. daily, potassium 99 mg p.o. b.i.d., prednisone 5 mg p.o. q.p.m. and 10 mg p.o. daily, and venlafaxine 75 mg p.o. b.i.d. FOLLOW UP: She will follow up with her primary care physician on 02/09/2019 at 12:30 p.m. TIME SPENT: This is a 35 minute discharge. Dictated by NORBERTO Smith for Celio López MD cc: NORBERTO Smith MD Marlin D. Gill, MD
--- NOTE | 2019-02-02 18:59 | DISCHARGE SUMMARY ---
ADMISSION DATE: 01/31/2019 DISCHARGE DATE: 02/02/2019 ADDENDUM: Patient seen and examined by myself. Full note dictated and discussed with nurse practitioner. Patient notes that she is feeling tremendously better. She is having no current complaints. Denies any chest pains or palpitations. Denies any tetany. PLAN: We are going to discharge her home. She will continue her home calcium. She will follow up outpatient with her primary care. cc: Celio López MD
== END 2019-02-02 12:25 | disposition home or self-care (01) | DRG 641 ==
LOC: P.ED 13:13 → P.MEDSURG 17:09
PROVIDERS: ATTEND Family Medicine

== ENCOUNTER 2019-09-29 13:10 | Inpatient (IN) ==
--- NOTE | 2019-09-29 13:29 | PROVIDER DOCUMENTATION ---
HPI-General Adult - General Chief Complaint: Extremity Pain Stated Complaint: EXTREMITY CRAMPING Time Seen by Provider: 09/29/19 13:14 Source: patient Allergies/Adverse Reactions: Patient Allergies Allergy/AdvReac Type Severity Reaction Status Date / Time carbamazepine [From Tegretol] Allergy Unknown Unknown Verified 01/31/19 15:40 divalproex sodium Allergy Unknown Unknown Verified 01/31/19 15:40 [From Depakote] Home Medications: Home Medication List Medication Instructions Recorded Confirmed Last Taken Type Calcium Carb, Citrate/Vit D3 2 tab PO TID 06/21/16 01/31/19 01/31/19 History [Calcium + D3 ER Tablet] Calcitriol 1 mcg PO DAILY 11/03/17 01/31/19 01/31/19 History Hydrochlorothiazide 12.5 mg PO DAILY 11/03/17 01/31/19 01/31/19 History Venlafaxine [Effexor] 75 mg PO BID 11/03/17 01/31/19 01/31/19 History Atorvastatin Calcium [Lipitor] 40 mg PO HS 10/10/18 01/31/19 1 Day Ago History ~01/30/19 Levothyroxine Sodium [Synthroid] 88 microgm PO DAILY 10/10/18 01/31/19 01/31/19 History Omeprazole [Prilosec] 20 mg PO DAILY@0700 10/10/18 01/31/19 01/31/19 History Prednisone 10 mg PO DAILY 10/10/18 01/31/19 01/31/19 History Fluticasone 50 Mcg Nasal [place] 1 spray INTRANASAL DAILY 01/31/19 01/31/19 01/31/19 History [Flonase] Potassium Gluconate 99 mg PO BID 01/31/19 01/31/19 01/31/19 History Prednisone 5 mg PO QPM 01/31/19 01/31/19 1 Day Ago History ~01/30/19 Amoxicillin/Pot Clavulanate 875 mg PO Q12HR #14 tab 07/21/19 Unknown Rx [Augmentin] D-Methorphan/P-Epd/Bpm [Bromfed Dm 10 ml PO Q4H PRN #120 ml 07/21/19 Unknown Rx Liquid] - History of Present Illness -Gen Adult Nature of Presenting Problems: 49 YOF with PMH of thryoidectomy, low K and Ca, RA presents with c/o periorbital numbness, BUE and BLE tingling cramping x 3 weeks, B hand swelling. She denies CP, SOB, N/V/D. She reports she has felt like this previously with low electrolytes Location of Pain/Injury: reports: face, upper extremity, lower extremity Pain Radiation: reports: no radiation Quality of Pain: reports: other (tingling/numbness) Severity: reports: moderate Onset/Duration: reports: other (3 wks) Timing: reports: still present Context/Activities at Onset: reports: none Modifying Factors: improves with: nothing Associated Symptoms: reports: other (tingling/numbness BUE, BLE, Periorbital) Similar Symptoms Previously?: Yes Recently seen or treated by another doctor?: No Review of Systems - Adult - REVIEW OF SYSTEMS - ADULT Constitutional: reports: no symptoms reported. denies: chills, fever Eyes: reports: no symptoms reported. denies: decreased vision, blurred vision, double vision Ears, Nose, Mouth & Throat: reports: no symptoms reported. denies: sinus problem, nose pain, loose teeth, mouth/dental pain, mouth swelling Cardiovascular: reports: no symptoms reported. denies: chest pain, irregular h eart rate, palpitations Respiratory: reports: no symptoms reported. denies: cough, shortness of breath, wheezing Gastrointestinal: reports: no symptoms reported. denies: diarrhea, nausea, vomiting Genitourinary: reports: no symptoms reported. denies: flank pain, frequent UTI's, hematuria, hesitency Musculoskeletal: reports: see HPI, other (cramping, tingling, numbness BUE, BLE, Periorbital) Integumentary: reports: no symptoms reported. denies: itching, rash, skin sor es/ulcer Neurological: reports: see HPI, numbness, paresthesia. denies: dizziness/vertigo, headache/migraines, slurred speech, tremors Psychiatric: reports: no symptoms reported. denies: see HPI, anxiety, anti- depressant use, alcohol/drug dependence, depression, emotional problems, insomnia, panic attacks, suicidal thoughts, other Endocrine: reports: see HPI. denies: no symptoms reported, change in skin pigment, excessive sweating, goiter, cold intolerance, heat intolerance, increased hunger, increased thirst, polyuria, other Hematologic/Lymphatic: reports: no symptoms reported. denies: see HPI, blood clots, easy bruising, low blood count, lymphedema, prolonged bleeding, swollen lymph nodes, transfusions, other Allergic/Immunologic: reports: no symptoms reported. denies: see HPI, allergic reactions, allergic rhinitis, asthma, eczema, food allergy, frequent infections, hay fever, hives, positive PPD, urticaria, other Past History - Adult - PAST MEDICAL HISTORY-ADULT Review of Records: reports: Nursing Assessment Review, Social history reviewed & non-contributory. Major Childhood Illnesses: reports: denies history Cardiovascular: reports: hyperlipidemia Respiratory: reports: denies history Gastrointestinal: reports: GERD Obstetrical/Gynecological: reports: denies history Genitourinary: reports: kidney disease Musculoskeletal: reports: denies history Neurological: reports: Seizures/Epilepsy Psychiatric: reports: anxiety, depression Endocrine/Immune: reports: thyroid disorder Other Conditions: reports: denies history - PRIOR SURGERIES/PROCEDURES Surgical/Procedure History: reports: hysterectomy, other (thyroidectomy) - IMMUNIZATION STATUS Childhood Immunizations: See Nurse Assessment Flu Vaccine: See Nurse Assessment - FAMILY HISTORY Family History: reviewed, not pertinent Physical Exam-General - PHYSICAL EXAM-ADULT Initial Vital Signs Reviewed: Yes - CONSTITUTIONAL General Appearance: alert, no apparent distress - EYES Eyes: PERRL/EOMI, pink conjunctivae - HEAD, EARS, NOSE, MOUTH & THROAT HENMT: normocephalic/atraumatic, moist mucous membranes, normal ENT inspection - NECK Neck: non-tender, full range of motion, supple - RESPIRATORY Respiratory: chest non-tender, lungs clear, normal breath sounds, no pleuratic chest pain, no respiratory distress, no accessory muscle use - CARDIOVASCULAR Cardiovascular: normal peripheral pulses, regular rate, rhythm, no edema, no gallop, no JVD, no murmur - GASTROINTESTINAL (ABDOMEN) Abdominal Exam: normal bowel sounds, non tender, soft, no organomegaly, no pulsatile mass - LYMPHATIC Lymphatic: no adenopathy - MUSCULOSKELETAL Back Exam: normal inspection, no CVA tenderness, no vertebral tenderness Extremity: normal gait, joint effusion (B hands PIP joints), swelling (B hands). negative: pulse deficit, slow capillary refill Peripheral Pulses: radial (R): 2+, radial (L): 2+ - SKIN Integumentary: normal color, normal turgor, warm/dry, other (dryness/cracking B hands) - NEUROLOGIC Neurologic: grossly normal, other (generalized weakness to B hands). negative: aphasia, facial droop, focal weakness - PSYCHIATRIC Psych/Mental Status: normal mood/affect, oriented x 3 Progress - PLAN OF CARE/RESULTS Progress/Plan/Lab Results: Vital Signs - 8 hr 09/29/19 13:11 Temperature 98.0 F Pulse Rate 81 Respiratory Rate 16 Blood Pressure 158/106 O2 Sat by Pulse Oximetry 97 Orders Category Date Time Status Saline Loc NOW Care 09/29/19 13:19 Active CBC WITH ELECTRONIC DIFF [HEME] Stat Lab 09/29/19 13:19 Uncollected COMPREHENSIVE METABOLIC PANEL [CHEM] Stat Lab 09/29/19 13:19 Uncollected FREE T4 Stat Lab 09/29/19 13:24 Uncollected MAGNESIUM [CHEM] Stat Lab 09/29/19 13:19 Uncollected TSH Stat Lab 09/29/19 13:24 Uncollected 1448:CRITICAL CA 6.2, SEE NEW ORDERS Result Diagrams: 09/29/19 14:03 09/29/19 14:03 - REASSESSMENT Reassessment #1 Time Reassessed: 14:35 Status: improving (PT REPORTS PAIN IMPROVED WITH NORCO, AWITING LABS) Reassessment #2 Time Reassessed: 14:48 Status: unchanged (AGREES TO ADMISSION, HAS BEEN TAKING HOME CALCIUM SUPPLEMENTS) - CONSULTS/PCP/HOSPITALIST Notification #1 *Consult/PCP/Hospitalist*: DR. TOBI BRAXTON @ [id number] Time Discussed: 15:12 Consult Disposition: Admit Departure - Departure Date of Disposition Decision: 09/29/19 Time of Disposition Decision: 15:12 DIAGNOSIS: Hypocalcemia, Paresthesia of hand, bilateral, Hypothyroidism, Medical non- compliance Disposition: ADMITTED INPATIENT 09 Certified Medical Emergency: Emergent Condition: Stable Referrals and Follow-Ups: None,PCP [Primary Care Provider] - - Critical Care Note This patient required my direct & personal management of CC.: No Attestation - Physician/ NICOLLE Attestation Patient care was provided by Advanced Practice Provider:: Yes Advanced Practice Provider:: Charline Dempsey Advanced Practice Provider documentation review:: The Mid-level provider documentation, treatment plan and medical decision making was reviewed by the physician who agrees with all treatment and medical decision making by the MLP. The physician spent face to face time with patient:: No Advanced Practice Provider documentation review:: Supervising physician onsite and consulted in the evaluation and care of this patient. The physician did not have a face to face encounter with the patient.
[2019-09-29] MEDS ORDERED: NORCO-5 PO ONE (13:32)
[2019-09-29 14:30] LABS: BASO# 0.19 X1000 (0.0-0.2); BASO% 1.9 % (0.0-0.8); EOS# 0.48 X1000 (0.0-0.7); EOS% 4.8 % (0.0-10.0); HEMATOCRIT 40.2 % (37.0-47.0); HEMOGLOBIN 12.9 g/dL (12.0-16.0); IMM GRAN# 0.04 X1000 (0.0-0.04); IMM GRAN% 0.4 % (0.0-0.5); LYMPH# 3.05 X1000 (1.2-3.4); LYMPH% 30.3 % (20.5-51.1); MCH 28.5 PG (27-31); MCHC 32.1 g/dL (33-37); MCV 88.9 FL (81-99); MONO# 0.59 X1000 (0.11-0.59); MONO% 5.9 % (1.7-9.3); MPV 10.7 FL (7.4-10.4); NEUT# 5.71 X1000 (1.4-6.5); NEUT% 56.7 % (42.2-75.2); PLT 325 X1000 (130-400); RBC 4.52 XMIL (4.2-5.4); RDW 19.7 % (11.5-14.5); WBC 10.06 X1000 (4.8-10.8)
[2019-09-29] MEDS ORDERED: CALCIUM GLUCONATE 1 GM in NS 50 ML IV ONE ×2 (14:49→21:24)
[2019-09-29 14:50] LABS: CALCIUM 6.2 mg/dL (8.8-10.2); CREATININE 1.1 mg/dL (0.5-0.9); MAGNESIUM 2.1 mg/dL (1.5-2.7); POTASSIUM 3.8 mmol/L (3.5-5.1); TOTAL BILIRUBIN 0.2 mg/dL (0.20-1.00); TOTAL PROTEIN 8.6 g/dL (6.3-8.3)
[2019-09-29 15:15] LABS: FREE T4 0.1 ng/dL (0.93-1.70); TSH 67.97 uIUmL (0.27-4.20)
[2019-09-29] MEDS ORDERED: SYNTHROID PO ONE (15:22)
[2019-09-29] MEDS ORDERED: SODIUM CHLORIDE 0.9% INJ ONE (21:15)
[2019-09-29] MEDS ORDERED: SYNTHROID IV ONE (21:15)
[2019-09-29] MEDS ORDERED: SODIUM CHLORIDE 0.9% INJ PRN (21:24)
--- NOTE | 2019-09-29 22:00 | HISTORY AND PHYSICAL ---
CHIEF COMPLAINT: Swelling, numbness, tingling. HISTORY OF PRESENT ILLNESS: This is a 49-year-old female. She reports a history of scleroderma, rheumatoid, hypothyroidism, and Graves disease. She comes in with cramping and tingling/paresthesias in both hands starting about a week ago. It is mostly in her hands, but somewhat in her lower extremities as well. She has also had generalized weakness and slowness. She is hypothyroid, but she has not been able to establish with a doctor. She only recently got insurance, so she is now trying to get that situated. Her workup in the ER revealed hypocalcemia, and she was admitted as such. Her thyroid function is also off. Her TSH is very elevated at 68, and her free T4 very low at 0.1. Calcium was 6.2. 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 PAST MEDICAL HISTORY: 1. Hypothyroid with a history of hyperthyroid and Graves. She had a thyroidectomy in 1997. 2. Rheumatoid arthritis. 3. Raynaud's. 4. Reportedly scleroderma. 5. Hypertension. 6. Dyslipidemia. PAST SURGICAL HISTORY: 1. Again, she has had a thyroidectomy. 2. Hysterectomy. SOCIAL HISTORY: No tobacco or ethanol. 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 FAMILY HISTORY: Reviewed, noncontributory. ALLERGIES: Depakote and Tegretol. MEDICATIONS: She is supposed to be taking Synthroid 88, but she is not on that currently. She has been out of that for a month. She is also supposed to be on prednisone, it looks like, and Lipitor. REVIEW OF SYSTEMS: Positive for weight gain. No chest pain. No shortness of breath. She has generalized weakness. No syncope. She does have hand and face tightness. PHYSICAL EXAMINATION: VITAL SIGNS: Blood pressure 154/91, heart rate of 77, respiratory rate 18, temperature 98.2. GENERAL: A well-developed female in no acute distress. HEENT: Head is normocephalic, atraumatic. HEENT: Eye exam: Pupils equal, round, reactive to light. Extraocular movements are intact. On facial exam, she does distinctly have periorbital edema and kind of dryness of the skin with flaking, and she has a pinkish kind of tint to her periorbital area. Ear nose and throat exam: She has moist mucous membranes. NECK: Supple. CARDIOVASCULAR: Regular rate and rhythm. PULMONARY: Bilateral breath sounds, clear to auscultation. GI: Soft, nontender, nondistended. Bowel sounds are positive. EXTREMITIES: Her hands are extremely tight and swollen but feel almost like she does have sclerodactyly. She had trace edema in her lower extremities. LABORATORY DATA: Again, creatinine 1.1, calcium is 6.2, TSH of 67 and a free T4 of 0.1. ASSESSMENT/PLAN: This is a 49-year-old female with a history of hypothyroid who presents with symptomatic hypocalcemia and symptomatic hypothyroidism, I think possibly even developing myxedema coma, although she is not comatose. 1. Hypocalcemia. We will continue to supplement. I think we need to check her PTH and phosphorus levels, although I think this is all related to her profound hypothyroidism. We will continue to follow. We will check a vitamin D 25 level as well and follow closely. 2. Hypertension. Continue to monitor closely. Resume her hydrochlorothiazide. That should hopefully have a beneficial effect on her calcium potentially. 3. Dyslipidemia. We will continue treatment and check her lipid panel. Resume her atorvastatin and monitor. 4. 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 I am going to repeat her connective tissue panel. We need an VICTORIANO and kind of go from there. Apparently, she has been on steroids before. I am not sure how much of this is just hypothyroid versus other autoimmune issues kind of mixed in, but we will continue to monitor. cc: Carlito Montenegro MD
[2019-09-29] MEDS: CALTRATE 600 + D PO SCH (23:43)
[2019-09-30] MEDS: SYNTHROID IV SCH (06:04)
[2019-09-30] MEDS: PRILOSEC PO SCH (06:04)
[2019-09-30 06:10] LABS: BASO# 0.14 X1000 (0.0-0.2); BASO% 1.6 % (0.0-0.8); EOS# 0.43 X1000 (0.0-0.7); EOS% 5.1 % (0.0-10.0); HEMATOCRIT 39.4 % (37.0-47.0); HEMOGLOBIN 12.6 g/dL (12.0-16.0); IMM GRAN# 0.02 X1000 (0.0-0.04); IMM GRAN% 0.2 % (0.0-0.5); LYMPH# 2.78 X1000 (1.2-3.4); LYMPH% 32.7 % (20.5-51.1); MCH 28.4 PG (27-31); MCV 88.9 FL (81-99); MONO# 0.48 X1000 (0.11-0.59); MONO% 5.6 % (1.7-9.3); MPV 10.9 FL (7.4-10.4); NEUT# 4.66 X1000 (1.4-6.5); NEUT% 54.8 % (42.2-75.2); PLT 286 X1000 (130-400); RBC 4.43 XMIL (4.2-5.4); RDW 19.6 % (11.5-14.5); WBC 8.51 X1000 (4.8-10.8)
[2019-09-30 06:39] LABS: ALBUMIN 4.6 g/dL (3.5-5.0); POTASSIUM 3.3 mmol/L (3.5-5.1); TOTAL BILIRUBIN 0.4 mg/dL (0.20-1.00); TOTAL PROTEIN 8.2 g/dL (6.3-8.3)
[2019-09-30 06:42] LABS: CALCIUM 6.8 mg/dL (8.8-10.2); CHOLESTEROL 466 mg/dL (0-200); HDL 40 mg/dL (45-65); TRIGLYCERIDES 401 mg/dL (35-135)
[2019-09-30 06:43] LABS: CALCIUM 6.6 mg/dL (8.8-10.2)
[2019-09-30 08:07] LABS: PTH INTACT 4 pg/mL (16-65)
[2019-09-30] MEDS: CALTRATE 600 + D PO SCH ×2 (10:03→20:31)
[2019-09-30] MEDS: HYDROCHLOROTHIAZIDE PO SCH (10:04)
[2019-09-30] MEDS: EFFEXOR PO SCH ×2 (10:04→20:31)
[2019-09-30] MEDS: ROCALTROL PO SCH (10:04)
[2019-09-30] MEDS: PATIENT'S OWN MED PO SCH (10:04)
--- NOTE | 2019-09-30 10:45 | PROGRESS NOTE ---
DATE: 09/30/2019 SUBJECTIVE: Ms. Kamala Thao is a 49-year-old female. She is in no acute distress. She is still complaining of some swelling and cramping in her hands today. Calcium levels continue to be somewhat low. Other than that, she has no complaints. States that her breakfast was good. OBJECTIVE: Vital signs: Temperature 97.6 degrees, heart rate 64, respiratory rate 18, blood pressure 118/89, O2 saturation 94% on room air. General: Ms. Kamala Thao is a 49-year-old female. She is in no acute distress. She is able to answer questions appropriately. HEENT: Atraumatic, normocephalic. Pupils equal, round, reactive to light. Extraocular movements intact. Mucous membranes are moist. Neck: Trachea midline. Cardiovascular: S1, S2. Regular rate and rhythm. No rubs, gallops, murmurs. She has trace lower extremity edema, +2 dorsalis and radial pulses. Negative JVD and carotid bruits. Pulmonary: Clear to auscultation. Bilateral breath sounds. No accessory muscle use or work of breathing noted, tolerating room air. GI: Round, soft, nontender, nondistended. Positive bowel sounds x4. Extremities: Moves all extremities equally. Full range of motion. Mild swelling in the hands. Neurologic: A and O x3. Follows commands. Sensory is intact. Skin: Warm, dry, intact. Right ankle lower leg area with venous stasis noted. LABORATORY DATA: White blood cells 8000, hemoglobin 12, hematocrit 39, platelet count 286. Sodium 140, potassium 3.3. BUN 11, creatinine 1.0, glucose 87, calcium 6.8, phosphorus 6.0. Bilirubin 0.40, AST 37, ALT 15, albumin 4.6, triglycerides 401, total cholesterol 466, HDL 40. Vitamin D 18.7. PTH is 4. IMAGING: None. ASSESSMENT AND PLAN: 1. Uncontrolled hypothyroidism with hypoparathyroidism. Parathyroid hormone is low. Calcium is low. Phosphorus is elevated. She has been out of her Synthroid for at least a month. She has been started on intravenous Synthroid supplementation. We will recheck the labs in the morning. 2. Hypocalcemia, symptomatic with hand cramping. She has been initiated on vitamin D and calcium supplementation. 3. Hypokalemia. She also has potassium supplementation. 4. Autoimmune rheumatoid arthritis and Raynaud disease. Connective tissue panel has been sent. 5. Hyperlipidemia with hypertriglyceridemia, currently on atorvastatin. We will continue that. May consider adding fenofibrate and educated on a lower carbohydrate diet. 6. Deep venous thrombosis prophylaxis. Sequential compression devices. Dictated by NORBERTO Farah for Carlito Montenegro MD cc: NORBERTO Farah MD
[2019-09-30] MEDS: FLONASE NAS SCH (10:47)
[2019-09-30] MEDS ORDERED: CALCIUM GLUCONATE 4.65 MEQ in NS 50 ML IV ONE (11:39)
[2019-09-30] MEDS ORDERED: LIPITOR PO SCH (21:00)
[2019-10-01] MEDS: PATIENT'S OWN MED PO SCH ×2 (05:01→08:40)
[2019-10-01 05:53] LABS: BASO# 0.12 X1000 (0.0-0.2); BASO% 1.3 % (0.0-0.8); EOS# 0.44 X1000 (0.0-0.7); EOS% 4.6 % (0.0-10.0); HEMATOCRIT 38.7 % (37.0-47.0); HEMOGLOBIN 12.3 g/dL (12.0-16.0); IMM GRAN# 0.03 X1000 (0.0-0.04); IMM GRAN% 0.3 % (0.0-0.5); LYMPH# 2.39 X1000 (1.2-3.4); LYMPH% 25.1 % (20.5-51.1); MCH 28.2 PG (27-31); MCHC 31.8 g/dL (33-37); MCV 88.8 FL (81-99); MONO# 0.54 X1000 (0.11-0.59); MONO% 5.7 % (1.7-9.3); MPV 10.7 FL (7.4-10.4); NEUT# 6.01 X1000 (1.4-6.5); PLT 289 X1000 (130-400); RBC 4.36 XMIL (4.2-5.4); RDW 19.3 % (11.5-14.5); WBC 9.53 X1000 (4.8-10.8)
[2019-10-01] MEDS ORDERED: LOVENOX SUBQ SCH (06:00)
[2019-10-01 06:06] LABS: ALBUMIN 4.4 g/dL (3.5-5.0); CREATININE 1.2 mg/dL (0.5-0.9); MAGNESIUM 2.1 mg/dL (1.5-2.7); PHOSPHORUS 7.8 mg/dL (2.7-4.5); POTASSIUM 3.4 mmol/L (3.5-5.1); TOTAL BILIRUBIN 0.3 mg/dL (0.20-1.00)
[2019-10-01 06:14] LABS: HEMOGLOBIN A1C 5.8 % (4.8-6.0)
[2019-10-01 06:22] LABS: FREE T4 0.24 ng/dL (0.93-1.70); TSH 61.14 uIUmL (0.27-4.20)
[2019-10-01] MEDS: SYNTHROID IV SCH (06:35)
[2019-10-01] MEDS: PRILOSEC PO SCH (06:35)
[2019-10-01] MEDS: EFFEXOR PO SCH (08:38)
[2019-10-01] MEDS: FLONASE NAS SCH (08:38)
[2019-10-01] MEDS: ROCALTROL PO SCH (08:38)
[2019-10-01] MEDS: HYDROCHLOROTHIAZIDE PO SCH (08:39)
[2019-10-01] MEDS: CALTRATE 600 + D PO SCH (08:40)
[2019-10-01] MEDS ORDERED: CALCIUM GLUCONATE 4.65 MEQ in NS 100 ML IV ONE (13:00)
[2019-10-01] MEDS ORDERED: CALCIUM GLUCONATE 4.65 MEQ in NS 50 ML IV ONE (13:00)
[2019-10-01 14:19] VITALS: BP 139/97
[2019-10-01] MEDS ORDERED: KLOR-CON PO ONE (16:31)
--- NOTE | 2019-10-01 19:08 | DISCHARGE SUMMARY ---
ADMISSION DATE: 09/29/2019 DISCHARGE DATE: 10/01/2019 DISCHARGE DIAGNOSIS: Hypocalcemia, symptomatic, possibly due to profound hypothyroidism. CONSULTATIONS: None. HOSPITAL COURSE: This is a 49-year-old female with history of possible mixed connective tissue disease who came in with low calcium of 6.2. She also had a TSH of 67 and free T4 of 0.1. She has been unable to afford her medications, so she has been out of her Synthroid and calcium supplements for at least a month. She was complaining of carpal pedal paresthesias and spasms. She was admitted. She was placed on IV calcium and IV Synthroid and she slowly improved. Her calcium at the time of discharge was 8.0. Phosphorous was high at 7.8. Her PTH was low which would suggest primary hypoparathyroidism. In any case, the patient was admitted. She had she also had a very low TSH and free T4 of 67 and 0.1. She was placed on IV Synthroid and clinically improved. She was told to follow up with her primary doctor. DISCHARGE MEDICATIONS: Effexor 75 daily, fluticasone 120, hydrochlorothiazide 12.5, prednisone 5 at night and 5 in the morning, Prilosec 20 daily, calcium Caltrate 1 p.o. b.i.d., Lipitor 40, and Synthroid 100 mcg daily. DISCHARGE FOLLOWUP: She will need to follow up with PCP or [facility] 1 week for repeat labs. DISCHARGE LABORATORIES: Her potassium 3.4 and creatinine 1.2. DISCHARGE CONDITION: Stable. TYPE OF ADMISSION: This is a service admission. LABORATORIES PENDING: The connective tissue cascade which is still pending. cc: Carlito Montenegro MD
== END 2019-10-01 17:40 | disposition home or self-care (01) | DRG 640 ==
LOC: P.ED 13:10 → P.MEDSURG 18:41
PROVIDERS: ATTEND Internal Medicine